=== PATIENT | female | born 1950 | race Caucasian/White ===

== ENCOUNTER → 2018-02-20 | Outpatient (CLI) | payer OTHER ==
[~2018-02-20] MED LIST: LISINOPRIL2.5 MG PO; NAPROSYN500 MG PO; NORCO 5-325 TA1 EACH PO; NORFLEX100 MG PO; VITAMIN D1000 UNI1 PO
== END ==
LOC: MRI 09:24
DX: M47.818 Spondylosis without myelopathy or radiculopathy, sacral and sacrococcygeal region (principal); M76.02 Gluteal tendinitis, left hip; K43.9 Ventral hernia without obstruction or gangrene

== ENCOUNTER 2018-11-02 10:19 | Inpatient (IN) | payer OTHER ==
[~2018-11-02] VITALS: Ht 152.4 cm; Wt 143.8 kg
[~2018-11-02 10:19] MED LIST changes: +ALEVE220 MG PO; +CENTRUM SILVER1 EAC4 PO; +LISINOPRIL-HCT1 EAC1 PO; +OMEGA-31000 M1 PO; +PRESERVISION A1 EACH PO
[2018-11-02 10:28] VITALS: BP 114/87
[2018-11-02 11:32] LABS: ABSOLUTE NEUTROPHILS 5.3 thou/uL (1.4-8.2); BASOPHILS 1.9 % (0.0-2.0); EOSINOPHILS 6.2 % (0.0-3.0); HEMATOCRIT 39.4 % (37.0-47.0); HEMOGLOBIN 12.8 gm/dL (12.0-15.0); LYMPHOCYTES 25.6 % (24.0-44.0); MCHC 32.5 g/dL (28.0-37.0); MCV 86.4 fL (80.0-100.0); MONOCYTES 5.4 % (1.0-8.0); PLATELET COUNT 265 thou/uL (150-400); POLYS 60.9 % (36.0-66.0); RBC 4.56 mil/uL (4.20-5.00); RDW 15.1 % (10.5-14.5); WBC 8.7 thou/uL (4.0-11.0)
[2018-11-02 11:35] LABS: ANION GAP 9 mmol/L (7-16); BUN 20 mg/dL (7-18); CALCIUM 9.7 mg/dL (8.5-10.1); CHLORIDE 105 mmol/L (98-107); CO2 27 mmol/L (21-32); CREATININE 0.8 mg/dL (0.6-1.0); GLUCOSE 106 mg/dL (74-106); SODIUM 141 mmol/L (136-145)
[2018-11-02 11:44] LABS: ALBUMIN 3.5 g/dL (3.4-5.0); SGOT 29 U/L (15-37); SGPT 29 U/L (30-65); TOTAL BILIRUBIN 0.5 mg/dL (<0.1-1.0); TOTAL PROTEIN 6.7 g/dL (6.4-8.2); TROPONIN-I <0.06 ng/mL (<0.06)
[2018-11-02 12:46] VITALS: BP 136/77
[2018-11-02 12:58] VITALS: BP 156/100
[2018-11-02 15:18] VITALS: BP 159/85
--- NOTE | 2018-11-02 15:31 | 2DMMODE ---
[facility] [address] [place] [address] 2 D/M-MODE ECHOCARDIOGRAM Name: BYRON JUNIORA Buddy Room #: 201-P ADM IN ..#: [id number] ������������� Admission: 11/02/18 ������������� Attend Phys: Campbell Alicia MD Discharge: ��� ������������� ��� Date of : 50 Date of Service: 11/02/18 1531 �� Report #: [id number] �������� ��������������������������������������������[id number] THIS REPORT FOR: //name// APPROVED REPORT Study performed: 11/02/2018 14:06:50 EXAM: Comprehensive 2D, Doppler, and color-flow Echocardiogram Patient Location: Echo lab Room #: 201 Status: routine BSA: 2.22 HR: 115 bpm BP: 156/100 mmHg Rhythm: Atrial Fibrillation with RVR Other Information Study Quality: Adequate Technically limited study due to body habitus, high heart rate. Indications Atrial Fibrillation Palpitations Hypertension/HDD family hx CAD, SOA Echo Enhancing Agent Indication: Endocardial border delineation Agent(s) / Amount(s) Used: Optison 3 cc 2D Dimensions RVDd: 27.74 mm IVSd: 12.35 (7-11mm) LVOT Diam: 19.55 (18-24mm) LVDd: 39.47 mm PWd: 13.40 (7-11mm) Ascending Ao: 29.94 (22-36mm) LVDs: 29.01 (25-40mm) Aortic Root: 27.73 mm IVC: 15.00 mm Volumes Left Atrial Volume (Systole) Single Plane 4CH: 33.39 mL Single Plane 2CH: 43.20 mL LA ESV Index: 20.00 mL/m2 Aortic Valve [facility] [address] [address] 2 D/M-MODE ECHOCARDIOGRAM Name: CHERYL JUNIOR Room #: 201-P [facility]#: [id number] ������������� Admission: 11/02/18 ������������� Attend Phys: Campbell Alicia MD Discharge: ��� ������������� ��� Date of : 50 Date of Service: 11/02/18 1531 �� Report #: [id number] �������� ��������������������������������������������[id number] AoV Peak Rashad.: 1.28 m/s AO Peak Gr.: 6.64 mmHg LVOT Max P.64 mmHg LVOT Max V: 1.07 m/s AMY Vmax: 2.51 cm2 Mitral Valve MV Decel. Time: 159.48 ms MV E Max Rashad.: 1.35 m/s IVRT: 68.05 ms Pulmonary Valve PV Peak Rashad.: 1.05 m/s PV Peak Gr.: 4.50 mmHg Tricuspid Valve RAP Estimate: 5.00 mmHg Left Ventricle The left ventricle is normal size. There is normal LV segmental wall motion. Mild concentric left ventricular hypertrophy. The left ventricular systolic function is normal. The left ventricular ejection fraction is within the normal range. LVEF is 60-65%. This study is not technically sufficient to allow evaluation of the LV diastolic function due to atrial fibrillation. Right Ventricle The right ventricle is normal size. The right ventricular systolic function is normal. Atria The left atrium size is normal. The right atrium size is normal. Aortic Valve The aortic valve is not well visualized. No aortic regurgitation is present. There is no aortic valvular stenosis. Mitral Valve The mitral valve is normal in structure. There is no mitral valve regurgitation noted. No evidence of mitral valve stenosis. Tricuspid Valve The tricuspid valve is normal in structure. There is no tricuspid valve regurgitation noted. Pulmonic Valve The pulmonary valve is normal in structure. There [place] [address] 2 D/M-MODE ECHOCARDIOGRAM Name: CHERYL JUNIOR Room #: 201-P [facility] IN ..#: [id number] ������������� Admission: 11/02/18 ������������� Attend Phys: Campbell Alicia MD Discharge: ��� ������������� ��� Date of : 50 Date of Service: 11/02/18 1531 �� Report #: [id number] �������� ��������������������������������������������[id number] valvular regurgitation. Great Vessels The aortic root is normal in size. IVC is normal in size and collapses >50% with inspiration. Pericardium There is no pericardial effusion. <Conclusion> The left ventricular systolic function is normal. There is normal LV segmental wall motion. LVEF 60-65%. The aortic valve is not well visualized. No aortic regurgitation or stenosis The mitral valve is normal in structure. No mitral valve regurgitation Pulmonary artery pressure could not be reliably ascerained. There is no pericardial effusion. ��������������������������������������������� <ELECTRONICALLY SIGNED> ���������������������������������������� By: Ronal Gardner MD, FACC ��������������������������������������������� 11/02/18 [phone] Ronal Gardner MD, FACC /INF
[2018-11-02 16:21] VITALS: BP 126/82
--- NOTE | 2018-11-02 17:17 | EKG ---
[address] [place] [address] ELECTROCARDIOGRAM REPORT Name: CHERYL JUNIOR Room #: 201-P ADM IN ..#: [id number] ������������������ Admission: 11/02/18 ������������������ Attend Phys: Campbell Alicia MD Discharge: ������������������ Date of : 50 Report #: [id number] ����������������������������������������������������������������� [id number] THIS REPORT FOR: //name// [facility] ED Test Date: 2018-11-02 Test Time: 10:37:50 Pat Name: CHERYL JUNIOR Department: Room: 201 Gender: F Manufacturing Support Engineer: GONZÁLEZ : 1950 Requested By: Vicky Kilpatrick Order Number: [id number] MD: Ronal Gardner Measurements Intervals [place] Rate: 107 P: [place]: QRS: 63 QRSD: 77 T: -26 QT: 387 QTc: 517 Interpretive Statements Atrial fibrillation Low voltage, precordial leads RSR' in V1 or V2, probably normal variant Borderline T abnormalities, diffuse leads Prolonged QT interval Compared to ECG 04/29/2015 08:48:43 RSR' in V1 or V2 now present Atrial fibrillation has replaced sinus rhythm Electronically Signed On 11-02-2018 17:17:00 CDT by Ronal Gardner [email or web address] ��������������������������������������������� <ELECTRONICALLY SIGNED> ���������������������������������������� By: Ronal Gardner MD, FAC ��������������������������������������������� 11/02/18 1717 1037 1037 Ronal Gardner MD, FAC /EPI
--- NOTE | 2018-11-02 18:29 | NUR ---
ADMITTED PATIENT THIS AFTERNOON WITH DIAGNOSIS OF AFIB. ER STATES RATE 140-150'S ON ARRIVAL BUT DOWN TO 80'S WITHOUT TREATMENT. WHEN ARRIVED TO FLOOR, HR IN 90'S BUT WHEN OOB TO BATHROOM HR UP TO 150'S. METOPROLOL AND CARDIZEM PO GIVEN. MD AWARE. O X 4, GENERALIZED C/O JOINT PAIN, SLOW TO GET MOVING. TAKES ALEVE AT HOME BUT INSTRUCTED BY DR. MEREDITH THAT WHILE ON XARELTO, WILL NOT BE TAKING ALEVE. TYLENOL ORDERED.
[2018-11-02 20:03] VITALS: BP 147/93
[2018-11-03] VITALS (8 sets, daily range): BP systolic 109–150; BP diastolic 56–80
[2018-11-03 04:27] LABS: HEMATOCRIT 35.9 % (37.0-47.0); MCH 28.9 pg (26.0-34.0); MCHC 33.5 g/dL (28.0-37.0); RBC 4.17 mil/uL (4.20-5.00); RDW 15.3 % (10.5-14.5); WBC 7.1 thou/uL (4.0-11.0)
[2018-11-03 04:40] LABS: CALCIUM 9.2 mg/dL (8.5-10.1); CREATININE 0.7 mg/dL (0.6-1.0); POTASSIUM 3.8 mmol/L (3.5-5.1)
--- NOTE | 2018-11-03 04:52 | NUR ---
1900, PT AO X4. DENIES CHEST PAIN, NAUSEA AND VOMITING BUT REPORTS HIP PAIN . PAIN ALLEVIATED BY TYLENOL AND MOBILITY. PT AMBULATED IN THE ROOM USING A CANE. PT BARELY SLEPT BECAUSE OF "THE BED AND PILLOW ARE NOT COMFORTABLE". NO FURTHER CONCERNS REPORTED . WILL CONTINUE TO MONITOR AND FOLLOW POC.
--- NOTE | 2018-11-03 15:04 | NUR ---
VSS REMAINS AFIB WITH VR 80'S AT REST AND WITH ACTIVITY 120'S ON INCREASE METEOPROLOL DOSE. LUNGS CLEAR RA SATR IS 94%. PT UP TO BRP WITH CANE WITH ASSIST AND GETS ADAIR, RECOVERS SLOWLY. WILL CONTINUIE TO MONITER AND CARE FOR PT PER PLAN OF CARE
[2018-11-04 03:51] VITALS: BP 116/65
[2018-11-04 04:46] LABS: HEMATOCRIT 39.2 % (37.0-47.0); HEMOGLOBIN 12.8 gm/dL (12.0-15.0); MCH 28.4 pg (26.0-34.0); MCHC 32.8 g/dL (28.0-37.0); MCV 86.7 fL (80.0-100.0); RBC 4.52 mil/uL (4.20-5.00); RDW 15.3 % (10.5-14.5); WBC 7.5 thou/uL (4.0-11.0)
[2018-11-04 05:01] LABS: CALCIUM 9.7 mg/dL (8.5-10.1); CREATININE 0.7 mg/dL (0.6-1.0)
--- NOTE | 2018-11-04 05:23 | NUR ---
ASSUMED CARE AT 1900. PT C/O HIP PAIN, ALLEVIATED BY TYLENOL. 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 HR IN 70s- 80 at rest. TACHY WITH ACTIVITIES UPTO HR OF 154. DENIES DIZZINESS / CHEST PAIN. PATIENT CONCERNED ABOUT DISCHARGING HOME. WILL CONTINUE TO FOLLOW POC.
[2018-11-04 08:38] VITALS: BP 121/77
[2018-11-04 10:17] VITALS: BP 126/65
[2018-11-04 12:16] VITALS: BP 127/80
--- NOTE | 2018-11-04 14:44 | NUR ---
VSS PT UP IN HALLS X 3 TODAY, RESTING HR 80-85, DURING WALK HR UP TO 150-155, PT C/O MD MANA AWARE. LUNGS CLEAR RA SAT IS 97%. WILL CONTINUE TO MONITER AND CARE FOR PTPER PLANOF CARE
[2018-11-04 15:31] VITALS: BP 130/63
[2018-11-04] MEDS ORDERED: METOPROLOL SUCC50 MG PO (15:58)
[2018-11-04] MEDS ORDERED: CARDIZEM CD 18180 M3 PO (15:59)
[2018-11-04] MEDS ORDERED: XARELTO20 MG PO (16:05)
[2018-11-04 18:05] VITALS: BP 127/80
== END 2018-11-04 18:36 | disposition home or self-care (01) | DRG 309 ==
LOC: ER 10:19 → 2N 12:59 → EROBS 12:59 → 2N 13:42
PROVIDERS: Student in an Organized Health Care Education/Training Program; ADMIT Hospitalist
DX: I48.91 Unspecified atrial fibrillation (principal); D68.59 Other primary thrombophilia; Z68.44 Body mass index [BMI] 60.0-69.9, adult; I10 Essential (primary) hypertension; E66.01 Morbid (severe) obesity due to excess calories; K21.9 Gastro-esophageal reflux disease without esophagitis; M19.90 Unspecified osteoarthritis, unspecified site; Z98.42 Cataract extraction status, left eye; Z98.41 Cataract extraction status, right eye; Z79.899 Other long term (current) drug therapy; Z91.040 Latex allergy status; Z87.891 Personal history of nicotine dependence; Z82.49 Family history of ischemic heart disease and other diseases of the circulatory system
CPT/HCPCS: 10081